=== PATIENT | female | born 1950 | race Caucasian/White ===

== ENCOUNTER → 2017-07-22 | Outpatient (CLI) | payer MEDICARE, SELFPAY | PROVIDERS: Visit Provider Family Medicine | DX: Z12.31 Encounter for screening mammogram for malignant neoplasm of breast (principal); Z00.00 Encounter for general adult medical examination without abnormal findings | CPT/HCPCS: 77067; G0202 ==

== ENCOUNTER → 2018-08-08 08:31 | Outpatient (CLI) | payer MEDICARE, SELFPAY ==
--- NOTE | 2018-08-08 08:39 | MM_ITS ---
MM Dig screening mamm BI w/CAD ORDERING PHYSICIAN : Raysa Pack PATIENT AGE: 68 years GENDER: Female COMPARISON: July 2017, 2015 INDICATION: No hormones. No new complaints Screening mammogram. Previous benign surgical excisional biopsy right breast. Noncontributory family history TECHNIQUE: Standard CC and MLO images were obtained. R2 CAD reviewed. Additional axillary cc views both breasts included FINDINGS: Fairly dense breast bilaterally. Mammography slight decrease sensitivity slightly denser character. But with no dominant mass nor suspicious mass. No architectural distortion... No malignancy evident radiographically RIGHT BREAST:No new findings of significant concern . Previous stereotactic biopsy metallic clip marker is seen at the deep mid central breast LEFT BREAST:. No new findings of significant concern. A few tiny punctate barely evident calcifications are seen towards medial breast. Scattered and I believe similar to studies dating back to 2016, can be followed in one year. Old IMPRESSION: . No significant new findings either breast. Stable mammogram. Follow-up in one year recommended. BI-RADS Category: 2 Benign Finding(s) RECOMMENDED FOLLOW-UP: 1YR 1 YEAR FOLLOW-UP (A letter has been sent to the patient regarding results of the study.)
== END ==
PROVIDERS: PCP Family Medicine; Visit Provider Family Medicine
DX: Z12.31 Encounter for screening mammogram for malignant neoplasm of breast (principal)
CPT/HCPCS: 77067

== ENCOUNTER → 2019-08-29 16:15 | Outpatient (CLI) | payer MEDICARE, SELFPAY ==
--- NOTE | 2019-08-29 16:18 | MM_ITS ---
PROCEDURE: MM DIG SCREENING MAMM BI W/CAD CLINICAL INDICATION: SCREENING There is no personal or family history of breast cancer. There has been a previous biopsy right breast for benign disease. COMPARISON: [facility] DIG MAMM-SCREEN ANGELA from 07/16/2016 [facility] DIG MAMM-SCREEN ANGELA W/CAD from 07/22/2017 [facility] MM Dig screening mamm BI w/CAD from 08/08/2018 TECHNIQUE: Standard CC and MLO images and 3D Tomosinthisis was obtained. R2 CAD reviewed. FINDINGS: Prominent diffuse heterogenic fibroglandular densities are seen throughout both breast definitely lessening the sensitivity of mammography. However 3D lin imaging is most helpful in this type of breast parenchyma and I see no suspicious lesion in either breast. There is a biopsy clip right breast. There are a couple of benign-appearing calcifications left breast. There are no suspicious microcalcifications. IMPRESSION: Stable dense and heterogenic parenchymal pattern with no suspicious lesions seen BI-RAD Category: 2 Benign Finding(s) FOLLOW-UP: 1YR 1 Year Follow-up (A letter has been sent to the patient regarding results of the study.) Dictated by: Dr. Phill Talbert MD 08/29/2019 17:[address] Phill Talbert MD in [place] 08/29/2019 17:35
== END ==
PROVIDERS: PCP Family Medicine; Visit Provider Family Medicine
DX: Z12.31 Encounter for screening mammogram for malignant neoplasm of breast (principal)
CPT/HCPCS: 77063; 77067

== ENCOUNTER → 2020-09-04 10:47 | Outpatient (CLI) | payer MEDICARE, SELFPAY ==
--- NOTE | 2020-09-04 10:50 | MM_ITS ---
PROCEDURE: MM DIG SCREENING MAMM BI W/CAD Digital Breast Tomosynthesis Included CLINICAL INDICATION: SCREENING There is no personal or family history of breast cancer. There has been a previous biopsy right breast for benign disease. COMPARISON: MG [facility] DIG MAMM-SCREEN ANGELA W/CAD from 07/22/2017 [facility] MM Dig screening mamm BI w/CAD from 08/08/2018 MG MM DIG SCREENING MAMM BI W/CAD from 08/29/2019 TECHNIQUE: Standard CC and MLO images and 3D Tomosynthesis was obtained. R2 CAD reviewed. FINDINGS: Prominent diffuse heterogenic fibroglandular densities are seen in the central portions of both breast and the findings are bilateral and symmetrical. There is a biopsy clip right breast. There is a a couple of benign-appearing microcalcifications upper central portion left breast. Carlos Enrique images are most helpful in this type of dense breast parenchyma. There is no new or suspicious lesion in either breast and no suspicious microcalcifications. IMPRESSION: Stable dense and heterogenic parenchymal pattern with no suspicious lesions seen BI-RAD Category: 2 Benign Finding(s) FOLLOW-UP: 1YR 1 Year Follow-up (A letter has been sent to the patient regarding results of the study.) Dictated by: Dr. Phill Talbert MD 09/08/2020 09:47 Dr. Phill Talbert MD in [place] 09/08/2020 09:47
== END ==
PROVIDERS: PCP Family Medicine; Visit Provider Family Medicine
DX: Z12.31 Encounter for screening mammogram for malignant neoplasm of breast (principal)
CPT/HCPCS: 77063; 77067

== ENCOUNTER → 2021-09-14 10:18 | Outpatient (CLI) | payer MEDICARE, SELFPAY ==
--- NOTE | 2021-09-14 10:23 | MM_ITS ---
PROCEDURE INFORMATION: Exam: MG Bilateral Screening 3D Mammography Exam date and time: 09/14/2021 10:23 AM Age: 71 years old Clinical indication: Screening mammogram TECHNIQUE: Imaging protocol: Bilateral Screening tomosynthesis and 2D mammography including computer-aided detection (CAD) when performed. COMPARISON: 1. MG MM DIG SCREENING MAMM BI W/CAD 09/04/2020 10:50 AM 2. MG MM DIG SCREENING MAMM BI W/CAD 08/29/2019 4:29 PM 3. MG [facility] MM Dig screening mamm BI w/CAD 08/08/2018 9:20 AM 4. MG [facility] DIG MAMM-SCREEN ANGELA W/CAD 07/22/2017 10:47 AM FINDINGS: MAMMOGRAPHY: Breast composition: The breast tissue is heterogeneously dense, which may obscure small masses. Mass: None. Architectural distortion: No new or suspicious architectural distortion. Calcifications: Stable benign-appearing calcifications are present. No new or suspicious cluster of microcalcifications have developed. Asymmetric density: No new or suspicious asymmetric density is present Skin thickening: None. Axillary adenopathy: None. IMPRESSION: No mammographic evidence of malignancy. Recommend annual screening mammography unless otherwise clinically indicated. ASSESSMENT: BI-RADS category 2: Benign
== END ==
PROVIDERS: PCP Family Medicine; Visit Provider Family Medicine
DX: Z12.31 Encounter for screening mammogram for malignant neoplasm of breast (principal)
CPT/HCPCS: 77063; 77067

== ENCOUNTER → 2022-09-22 10:24 | Outpatient (CLI) | payer MEDICARE, SELFPAY ==
--- NOTE | 2022-09-22 10:27 | MM_ITS ---
PROCEDURE INFORMATION: Exam: MG Bilateral Screening 3D Mammography Exam date and time: 09/22/2022 10:23 AM Age: 72 years old Clinical indication: Screening examination TECHNIQUE: Imaging protocol: Bilateral Screening tomosynthesis and 2D mammography including computer-aided detection (CAD) when performed. COMPARISON: 1. MG MM DIG SCREENING MAMM BI W/CAD 09/14/2021 10:28 AM 2. MG MM DIG SCREENING MAMM BI W/CAD 09/04/2020 10:50 AM FINDINGS: MAMMOGRAPHY: Breast composition: The breasts are extremely dense, which lowers the sensitivity of mammography. Mass: None. Architectural distortion: None. Calcifications: No suspicious calcifications. Asymmetric density: None. Skin thickening: None. Axillary adenopathy: None. IMPRESSION: No mammographic evidence of malignancy. Annual screening is recommended unless otherwise clinically indicated. ASSESSMENT: BI-RADS Category 1: Negative
== END ==
PROVIDERS: PCP Family Medicine; Visit Provider Family Medicine
DX: Z12.31 Encounter for screening mammogram for malignant neoplasm of breast (principal)
CPT/HCPCS: 77063; 77067

== ENCOUNTER 2023-10-04 07:39 | Outpatient (CLI) | payer MEDICARE, SELFPAY ==
--- NOTE | 2023-10-04 07:42 | MM_ITS ---
PROCEDURE INFORMATION: Exam: MG Bilateral Screening 3D Mammography Exam date and time: 10/04/2023 7:50 AM Age: 73 years old Clinical indication: Screening examination. No family history of breast cancer. TECHNIQUE: Imaging protocol: Bilateral Screening tomosynthesis and 2D mammography including computer-aided detection (CAD) when performed. COMPARISON: 1. MG MM DIG SCREENING MAMM BI W/CAD 09/22/2022 10:23 AM 2. MG MM DIG SCREENING MAMM BI W/CAD 09/14/2021 10:28 AM 3. MG MM DIG SCREENING MAMM BI W/CAD 09/04/2020 10:50 AM 4. MG MM DIG SCREENING MAMM BI W/CAD 08/29/2019 4:29 PM FINDINGS: MAMMOGRAPHY: Breast composition: The breasts are extremely dense, which lowers the sensitivity of mammography. Mass: None. Architectural distortion: None. Calcifications: No suspicious calcifications. Asymmetric density: No developing asymmetry. Skin thickening: None. Axillary adenopathy: None. IMPRESSION: No mammographic evidence of malignancy. Annual screening is recommended unless otherwise clinically indicated. ASSESSMENT: BI-RADS Category 1: Negative
== END 2023-10-04 23:59 ==
LOC: RAD 07:39
PROVIDERS: PCP Family Medicine; Visit Provider Family Medicine
DX: Z12.31 Encounter for screening mammogram for malignant neoplasm of breast (principal)
CPT/HCPCS: 77063; 77067

== ENCOUNTER 2024-11-28 10:37 | Outpatient (CLI) | payer MEDICARE, SELFPAY ==
--- NOTE | 2024-11-28 10:40 | MM_ITS ---
PROCEDURE INFORMATION: Exam: MG Bilateral Screening 3D Mammography Exam date and time: 11/28/2024 10:51 AM Age: 74 years old Clinical indication: Screening examination TECHNIQUE: Imaging protocol: Bilateral Screening tomosynthesis and 2D mammography including computer-aided detection (CAD) when performed. COMPARISON: 1. MG MM DIG SCREENING MAMM BI W/CAD 10/04/2023 7:50 AM 2. MG MM DIG SCREENING MAMM BI W/CAD 09/22/2022 10:23 AM FINDINGS: MAMMOGRAPHY: Breast composition: The breasts are heterogeneously dense, which may obscure small masses. Mass: No suspicious masses. Architectural distortion: None. Calcifications: No suspicious calcifications. Asymmetric density: None. Skin thickening: None. Axillary adenopathy: None. IMPRESSION: No mammographic evidence of malignancy. Annual screening is recommended unless otherwise clinically indicated. ASSESSMENT: BI-RADS Category 1: Negative.
== END 2024-11-28 23:59 | disposition home or self-care (01) ==
LOC: RAD 10:38
PROVIDERS: PCP Family Medicine; Visit Provider Family Medicine
DX: Z12.31 Encounter for screening mammogram for malignant neoplasm of breast (principal)
CPT/HCPCS: 77063; 77067